=== PATIENT | male | born 1980 | race Caucasian/White ===

== ENCOUNTER 2025-06-14 09:08 | Outpatient (AMB) | payer OTHER, SELFPAY ==
--- OUTSIDE RECORDS SUMMARY | 2024-04-25 07:45 | XMS_ITS ---
Author Organization [facility] Address [address] [place] [id number] Care Team Providers [employer] Division Chair Name Role Phone ISABELLEJACEK RodriguezSA Unavailable [phone] REASON FOR VISIT gardasil #2 Social History Sex Assigned At : Social History Observation Description Sex Assigned At Male Encounters Encounter Location Date Provider Diagnosis [facility] [address] [place] [address] [place], [place] [id number] 04/25/2024 IVAN FAUST Plan Of Treatment No Information Progress Notes * Joseluis ALEXISiel JDOB: [birth year] (45 yo M)Acc No.[id number]:04/25/2024 Progress Notes Patient: Aquiles Sweet Provider: Sylvie Faust NP :1980 A ge:44 Y S ex:Male Date:04/25/2024 Address:[address] [place] [address] [place], [place] [id number] Subjective: * Chief Complaints: * G ardasil #2 * Electronic signature of JACEK FAUST NP on 06/14/2025 at 09:51 AM EDT Sign off status: Pending * Provider: Sylvie Faust NP Date: 0 04/25/2024 Generated for Maria De Jesus ng/Fasuzanne/eTransmitting on: 06/14/2025 09:51 AM EDT
--- OUTSIDE RECORDS SUMMARY | 2025-06-14 09:51 | XMS_ITS | Patient Health Record ---
Author Organization [facility] Address [address] [facility] [place], [place] [id number] Support Name Relationship Address Phone Aquiles Valenzuela Guarantor Unknown [phone] Allergies Allergen (clinical drug ingredient) Drug/Non Drug Allergy documented on EMR Reaction Allergy Type Onset Date Status Cat dander Cat Dander Unknown Allergy Active Reason For Referral No Information Medications Medication SIG (Take, Route, Frequency, Duration) Notes Start Date End Date Status Gardasil 9 - Suspension Prefilled Syringe as directed Intramuscular 02/22/2024 Not-Taking/PRN hydrOXYzine HCl Acti ve Victoza Active Immunizations Vaccine Route Administration Date Status Comme nts HPV 9 IM Intramuscular 02/22/2024 Administered Social History Sex Assigned At : Social History Observation Description Sex Assigned At Male Social History HIV Risk Assessment Social Info Question Answer Notes Additional Questions Is an HIV Risk Asse ssment being conducted? No Reproductive Life Plan: Social Info Question Answer Notes Reproductive Life Plan: Do you want to have chil dren? No, I don't want to have children How sure are you that you will be able to use your control method without any problems? Very sure People's plans change. Is it possible you or your partner could ever decide to become ? No Human Trafficking: Social Info Question Answer Notes Human Trafficking Experienced: No PrEP for HIV: Social Info Question Answer Notes PrEP for HIV Is the client lazaro herbert in beginning/continuing PrEP for HIV? No Sexual History: Social Info Question Answer Notes Sexual History: Sexual History Reviewed: Partner s, Practices, Protection/Past STIs, Prevention of Currently sexually active? Yes Sexually active with: Women Your sexual activities include: oral intercourse, vaginal intercourse Reviewed types of EC? No Do you use condoms? Yes Condoms are used: regularly Date of last unprotected intercourse: 01/18/2024 Number of partners in past 3 months: 2 Number of partners in past year: 5 What is the client's primary method to prevent at the end of their visit? Condoms - Male Does your partner(s) currently have any STIs? No Counseling Provided: Social Info Question Answer Notes Counseling Provided Please indicate the length of time, in minutes, that counseling was provided. 6 Counseling Was Provided By: tony Drugs/Alcohol: Social Info Question Answer Notes Drug/Alcohol Use Do you or have you used drugs? Yes, c urrently By what route are you taking drugs? Please check all that apply: Ingesting (eating) Which drug(s) do you ingest (eat)? Marijuana Do you want to quit drugs? No Do you or have you used alcohol? Yes, currently social use Food Access: Social Info Question Answer Notes Food Access The Client's current access to food is Secure Food Access Relationships: Social Info Question Answer Notes Relationships Has the client experienced any of the following: Client has never experienced harmful relationships DO NOT USE - Travel Plans: Social Info Question Answer Notes Travel Plans DO NOT USE - Has cli ent traveled to any Zika affected areas? Yes DO NOT USE - Has partner traveled to any Zika af fected areas? Yes DO NOT USE - Is client planning to travel to any Zika affected areas? No DO NOT USE - Is partner planning to travel to an y Zika affected areas? No Housing Social Info Question Answer Notes Housing The client's current living situation is: stable housing Tobacco Use: Social Info Question Answer Notes Tobacco Use: Do you/have you used tobacco? No Tobacco Smoking Status Never smoker Problems Problem Type SNOMED Code ICD Code Onset Dates Problem Status W/U Status Risk Notes Problem Genital/Anog enital/Vener eal Warts (A63.0) Active confirmed Plan Of Treatment No Information Insurance Providers Payer Name Payer Address Payer Phone Subscriber Number Group Number Insured Name Patient Relationship to Insured Coverage Start Date Coverage End Date DE MEDICAID ATT CLAIMS [address] [place] [id number] [phone] [id number] Aquiles Valenzuela Self - patient is the insured Medical (General) History Medical History History ICD Code Bronchitis Depression/anxiety Syphilis 1:16, treated 08/2022 Genital warts, started gardasil vaccine 02/2024 Surgical History Surgery Date(Month/Year)
--- NOTE | 2025-06-14 11:59 | MHC.OFFVISWM ---
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[facility]* Allergies No Known Allergies Allergy (Verified 06/14/25 11:59) Medication List - Last Reconciled 06/14/25 by Brandon Velarde MD hydroxyzine pamoate 100 mg PO BEDTIME HPI HPI TV POST PARTUM NURSE [facility]*: Details: Start time: 11.56am, End time: 12.41pm ?I spent 40 minutes speaking with the patient on the phone plus an additional 5 minutes reviewing and updating records for a total of 45 minutes HPI Comments Details: Previous weight loss efforts: self diet and exercise, intermittent fasting Wakes up: 9am, Sleeps: 1am, Works 1pm-8pm Breakfast: skips Lunch: 1pm (eggs, cheese) Dinner: 9pm (fast food, take-out) Snacks: 3pm (water melon) Exercise: none Beverages: Coffee: (2 10oz-cups/d with creamer and sugar), Tea: [employer] Green tea 1 cup/d), Soda: Rup bear 1 can/d, Juice: Cranberry daily, ETOH: rarely PFSH Medical History (Updated 06/14/25 @ 12:32 by Brandon Velarde MD) GERD (gastroesophageal reflux disease) Morbid obesity Surgical History (Updated 03/24/25 @ 13:15 by Fela Hughes CMA) Hx of appendectomy Family History (Updated 03/24/25 @ 13:17 by Fela Hughes CMA) Mother Thyroid condition Father Heart problem Diabetes Daughter No problems noted. Social History (Updated 03/24/25 @ 13:18 by Fela Hughes CMA) Alcohol intake: current Alcohol intake frequency: holidays/special occasions only Patient Tobacco Use Status: Former Tobacco user Telehealth Telehealth Telehealth Platform: Telephone Location of provider rendering services: practice address Location of patient: address on file Patient Identification confirmed using: Name, : Yes Telehealth method: voice only Patient verbally consented to treatment: Yes Patient verbally consented to billing insurance company: Yes Patient informed of any privacy concerns related to visit: Yes Minutes spent on Phone/Video with Pt.: 45 Assessment & Plan Assessment & Plan (1) Morbid obesity: Code(s): E66.01 - Morbid (severe) obesity due to excess calories Category: Medical Plan: 1.?Nutritional counseling. Start with one premade PREMIER protein (buy at [employer] or [employer]) shake (8oz of Premier, NOT the whole bottle) at 10am-12pm, 2 protein bars (Fit Crunch protein bar, buy at [employer], or [employer]) at 1pm-3pm, 4pm-6pm, another HALF [employer] protein bar at 7pm-8pm, dinner at 9pm (10 forks of protein and 10 forks of salad/vegetables), another premade PREMIER protein shake (8oz of Premier, NOT the whole bottle) at 11pm-1am So you do 2 protein shakes, 2.5 protein bars and one meal per day. Meal to include lean meat (beef, fish, pork, turkey, chicken), or kazakh yogurt, or egg whites, or beans with a salad with olive oil and fruits (berries, pears, apples, kiwi). Avoid salt, breads, potatoes, rice, pasta, desserts. 3. Each shake would be drunk slowly, like coffee in a period of 2 hours. 4. Cut each bar in 4 pieces and eat each piece in 30min ?to make each bar last 2 hours. 5. I emphasized the importance of measuring accurately the food portion and measure it when serving the food in plate 6. The meal portions include 10 full-size forks of meat and 10 full-size forks of salad. You always eat the meat portion but you can replace up to 5 forks for salad/vegetables with rice, potatoes or pasta, or a fruit ?if you like. The less you do it the better weight loss will be. 7. One full-size fork is what it can be scooped on the fork without falling aside and not what can be bit with the fork. Use regular forks like those you find in a typical restaurant. 8.? Please buy the body composition scale we discussed and send me weight measurements as soon as possible and then once a week. Always include your diet and exercise plan. 9. Start walking outside daily, tracking calories with a goal of 300 calories per day, daily. Goal is to burn 2000 calories per week on exercise, which means either 300 calories daily, or 400 calories 5 days per week, or 500 calories 4 days per week, or 650 calories 3 days per week. 10. The best choice would be to purchase a stationary bike at home that can track calories. Let me know if you do so I can give you an exercise plan. 11. Goal is to lose at least 1.5-2lbs per week 12. Goal to lose at least 10% of your weight, which is about 30lbs. Minimum weight goal: 267lbs 13. Please follow the diet plan exactly without any change. If you don't like something about the plan or you feel hungry you need to communicate with me so I can help you revise the plan. You should not change the plan yourself
[2025-06-14 12:07] VITALS: BMI 40.3
== END 2025-06-14 12:40 | disposition home or self-care (01) ==
LOC: HO.HBS 09:08
PROVIDERS: PCP Family Medicine; Visit Provider Surgery
DX: E66.01 Morbid (severe) obesity due to excess calories (principal); Z68.41 Body mass index [BMI] 40.0-44.9, adult
CPT/HCPCS: 99204